=== PATIENT | female | born 1990 | race Caucasian/White ===

== ENCOUNTER 2023-12-15 03:50 | Emergency (ER) | payer SELFPAY ==
[~2023-12-15] VITALS: Ht 172.7 cm; Wt 60.0 kg
[2023-12-15] MEDS: NALOXONE HCL 1MG/ML 2ML SYRINGE IM ONE (04:03)
[2023-12-15 04:10] VITALS: BP 137/81; RESP 16; O2SAT 95
[2023-12-15] MEDS ORDERED: SODIUM CHLORIDE 0.9% 1,000 ML IVB ONE (04:15)
[2023-12-15 04:22] VITALS: PULSE 120
[2023-12-15] MEDS: NALOXONE HCL 1MG/ML 2ML SYRINGE ONE (04:24)
== END 2023-12-15 04:14 | disposition left against medical advice (07) ==
LOC: EDBD 03:50 → ER 03:50
DX: T40.601A Poisoning by unspecified narcotics, accidental (unintentional), initial encounter (principal); Y92.89 Other specified places as the place of occurrence of the external cause; F17.210 Nicotine dependence, cigarettes, uncomplicated
CPT/HCPCS: 93005; 96372; 99283; J2310